=== PATIENT | male | born 1995 | race Two or more races ===

== ENCOUNTER → 2019-10-27 | Emergency (ER) | payer MEDICAID ==
[~2019-10-27] VITALS: Ht 160 cm; Wt 63.5 kg
[~2019-10-27] MED LIST: ESOM40CA39; LORazepam 2MG/ML-1ML VIAL IV ONE; SODIUM CHLORIDE 0.9% 1,000 ML IVB ONE
[2019-10-27 13:31] LABS: Basophils # (auto) 0 uL; Basophils % (auto) 0.2 % (0.0-2.0); Eosinophils # (auto) 0 uL; Eosinophils % (auto) 0.3 % (0.0-7.0); Hematocrit 45.2 % (41.0-53.0); Hemoglobin 14.8 g/dL (13.5-17.5); Lymphocytes # (auto) 0.7 uL; Lymphocytes % (auto) 5.8 % (10.0-50.0); Mean Corpuscular Hemoglobin 27.6 pg (28.0-32.0); Mean Corpuscular Hgb Conc. 32.7 g/dL (32.0-36.0); Mean Corpuscular Volume 84.5 fL (80.0-100.0); Monocytes # (auto) 0.8 uL; Monocytes % (auto) 6.7 % (0.0-12.0); Neutrophils # (auto) 10.4 uL; Platelet Count (auto) 300 10^3/uL (140-450); Red Blood Cells 5.35 10^6/uL (4.5-5.90); Red Cell Distribution Width 13.5 % (11.8-14.3)
[2019-10-27 14:04] LABS: Albumin 4.2 g/dL (3.4-5.0); Calcium 8.8 mg/dL (8.5-10.1); Magnesium 2.7 mg/dL (1.6-2.6); Potassium 4.1 mmol/L (3.5-5.1)
[2019-10-27 14:08] LABS: BUN/Creatinine Ratio 9.2; Bilirubin, Total 0.3 mg/dL (0.2-1.0); Total Protein 8.2 g/dL (6.4-8.2)
[2019-10-27 14:43] LABS: Alcohol, Urine < 3.0 mg/dL (0-5); Amphetamine Screen, Urine NEGATIVE (NEGATIVE); Barbiturate Scree,Urine NEGATIVE (NEGATIVE); Benzodiazephine Screen, Urine NEGATIVE (NEGATIVE); Cannabinoid Screen, Urine NEGATIVE (NEGATIVE); Cocaine Screen, Urine NEGATIVE (NEGATIVE); Opiate Scree,Urine NEGATIVE (NEGATIVE); Phencyclidine Screen, Urine NEGATIVE (NEGATIVE)
[2019-10-27 18:00] VITALS: BP 116/65
== END | disposition home or self-care (01) ==
LOC: EDUNIT# 12:06 → EDBD 12:13 → ER 12:25
DX: G40.909 Epilepsy, unspecified, not intractable, without status epilepticus (principal)
CPT/HCPCS: 36415; 71045; 80053; 80307; 82962; 83735; 85025; 93005; 96365; 96375; 99285; J1953; J2060; J7030; J7060

== ENCOUNTER 2022-10-10 07:09 | Emergency (ER) | payer MEDICAID ==
[~2022-10-10] VITALS: Ht 160 cm; Wt 64.0 kg
[~2022-10-10 07:09] MED LIST changes: -LORazepam 2MG/ML-1ML VIAL IV ONE; -SODIUM CHLORIDE 0.9% 1,000 ML IVB ONE
[2022-10-10 08:07] VITALS: BP 140/100
[2022-10-10] MEDS ORDERED: guaiFENesin-DM 100/10mg/5ml SYR PO ONE ×2 (08:45→09:15)
[2022-10-10] MEDS ORDERED: AZITTAB PO (09:37)
[2022-10-10] MEDS ORDERED: ALBU108A5 IN (09:37)
[2022-10-10] MEDS ORDERED: PROM1SOL4 PO (09:37)
== END 2022-10-10 09:45 | disposition home or self-care (01) ==
LOC: ER 07:09
DX: J40 Bronchitis, not specified as acute or chronic (principal); Z20.822 Contact with and (suspected) exposure to COVID-19
CPT/HCPCS: 36415; 71045; 87426; 87804

== ENCOUNTER 2022-12-19 19:20 | Emergency (ER) | payer MEDICAID ==
[~2022-12-19] VITALS: Ht 175.3 cm; Wt 74.8 kg
[~2022-12-19 19:20] MED LIST changes: +ALBU108A5 IN; +AZITTAB PO; +PROM1SOL4 PO
[2022-12-19] MEDS ORDERED: LORazepam 2MG/ML-1ML VIAL IV ONE ×2 (19:45)
[2022-12-19] MEDS ORDERED: SODIUM CHLORIDE 0.9% 1,000 ML IV ONE ×2 (19:45)
[2022-12-19 20:07] LABS: Basophils # (auto) 0 10 ^3/uL (0-0.2); Basophils % (auto) 0.1 % (0.0-2.0); Eosinophils # (auto) 0 10 ^3/uL (0-0.8); Eosinophils % (auto) 0.1 % (0.0-7.0); Hematocrit 40.9 % (41.0-53.0); Hemoglobin 12.9 g/dL (13.5-17.5); Lymphocytes # (auto) 0.6 10 ^3/uL (0.4-5.4); Mean Corpuscular Hemoglobin 25.4 pg (28.0-32.0); Mean Corpuscular Hgb Conc. 31.7 g/dL (32.0-36.0); Mean Corpuscular Volume 80.2 fL (80.0-100.0); Monocytes # (auto) 0.8 10 ^3/uL (0-1.3); Monocytes % (auto) 5.6 % (0.0-12.0); Neutrophils # (auto) 12.7 10 ^3/uL (1.6-8.6); Neutrophils % (auto) 90.2 % (37.0-80.0); Red Cell Distribution Width 15.9 % (11.8-14.3); White Blood Cell 14.1 10^3/uL (4.4-10.8)
[2022-12-19] MEDS ORDERED: levETIRAcetam 500 MG/5ML INJ IV ONE (20:11)
[2022-12-19 20:34] LABS: Calcium 9.2 mg/dL (8.5-10.1); Potassium 4.1 mmol/L (3.5-5.1)
[2022-12-19 20:40] LABS: BUN/Creatinine Ratio 7.4 (10.0-20.0); Bilirubin, Total 0.3 mg/dL (0.2-1.0); Magnesium 3.8 mg/dL (1.6-2.6); Total Protein 8.7 g/dL (6.4-8.2)
[2022-12-19 23:45] VITALS: BP 140/95
== END 2022-12-20 00:12 | disposition home or self-care (01) ==
LOC: EDBD 19:20 → ER 19:20
DX: R56.9 Unspecified convulsions (principal); K21.9 Gastro-esophageal reflux disease without esophagitis; Z86.69 Personal history of other diseases of the nervous system and sense organs
CPT/HCPCS: 36415; 80053; 83735; 85025; 96365; 99284; J1953; J7030; J7060